=== PATIENT | female | born 1990 | race American Indian/Alaskan Native ===

== ENCOUNTER 2018-12-16 23:22 | Emergency (ER) | payer MEDICAID, OTHER ==
--- NOTE | 2018-12-17 00:18 | XRay Report ---
LEFT KNEE, 3 VIEWS INDICATION / CLINICAL INFORMATION: fall with pain and swellling. COMPARISON: None available. FINDINGS: No fracture or dislocation. No evidence of joint effusion. Signer Name: Nikolai Correia MD Signed: 12/17/2018 12:13 AM Workstation Name: [id number]
[2018-12-17] MEDS ORDERED: TYLENOL PO ONE (02:00)
[2018-12-17] MEDS ORDERED: IBUPROFEN PO ONE ×2 (02:00→02:01)
[2018-12-17] MEDS ORDERED: TYLENOL ONE (02:01)
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
[2018-12-17 04:51] VITALS: BP 118/78
== END 2018-12-17 04:46 | disposition home or self-care (01) ==
LOC: ED 23:22
DX: M25.561 Pain in right knee (principal); F17.200 Nicotine dependence, unspecified, uncomplicated; F12.10 Cannabis abuse, uncomplicated
CPT/HCPCS: 99284

== ENCOUNTER 2021-02-07 16:53 | Emergency (ER) | payer BC ==
[2021-02-07 17:17] VITALS: BP 119/75
--- NOTE | 2021-02-07 18:39 | Emergency Department Report ---
ED ENT HPI - General Chief complaint: Sore Throat Stated complaint: THROAT Time Seen by Provider: 02/07/21 18:12 Source: patient Mode of arrival: Ambulatory Limitations: No Limitations - History of Present Illness Initial comments: 30 year female presents to ED with complaints of sore throat and hoarse voice. Patient states her symptoms started about 2 weeks ago. She states that at the time she was having fever and thought her symptoms was related to COVID and got test which was negative. She reports pain with swallowing, and it feels like her throat is swollen and she reports intermittent hoarseness. She reports no trismus or dooling or difficulty breathing. She states has been trying otc treatment without much relief. She denies any ill contacts. MD complaint: sore throat, other (hoarse voice, ) -: week(s) (2) - Related Data Previous Rx's Medication Instructions Recorded Last Taken Type Ketorolac [Toradol] 10 mg PO Q6H PRN #14 tablet 12/17/18 Unknown Rx Amoxicillin [Trimox CAP] 500 mg PO Q12H #20 capsule 02/07/21 Unknown Rx predniSONE [Deltasone] 40 mg PO QDAY #10 tab 02/07/21 Unknown Rx Allergies Allergy/AdvReac Type Severity Reaction Status Date / Time No Known Allergies Allergy Verified 12/16/18 23:30 ED Dental HPI - General Chief complaint: Sore Throat Stated complaint: THROAT Time Seen by Provider: 02/07/21 18:12 Source: patient Mode of arrival: Ambulatory Limitations: No Limitations - Related Data Previous Rx's Medication Instructions Recorded Last Taken Type Ketorolac [Toradol] 10 mg PO Q6H PRN #14 tablet 12/17/18 Unknown Rx Amoxicillin [Trimox CAP] 500 mg PO Q12H #20 capsule 02/07/21 Unknown Rx predniSONE [Deltasone] 40 mg PO QDAY #10 tab 02/07/21 Unknown Rx Allergies Allergy/AdvReac Type Severity Reaction Status Date / Time No Known Allergies Allergy Verified 12/16/18 23:30 ED Review of Systems ROS: Stated complaint: THROAT Other details as noted in HPI Constitutional: denies: chills, fever Eyes: denies: eye pain, eye discharge, vision change ENT: throat pain, other (+hoarse voice ). denies: ear pain, dental pain, hearing loss, epistaxis, congestion Respiratory: denies: cough, shortness of breath, SOB with exertion, SOB at rest, wheezing Cardiovascular: denies: chest pain, palpitations Endocrine: no symptoms reported Gastrointestinal: denies: abdominal pain, nausea, diarrhea, constipation, hematemesis, melena, hematochezia Genitourinary: denies: urgency, dysuria, discharge Musculoskeletal: denies: back pain, joint swelling, arthralgia Skin: denies: change in color, change in hair/nails, pruritus Neurological: denies: headache, weakness, numbness, paresthesias, confusion, abnormal gait, vertigo Psychiatric: denies: anxiety, depression, auditory hallucinations, visual hallucinations, homicidal thoughts, suicidal thoughts Hematological/Lymphatic: denies: easy bleeding, easy bruising, swollen glands ED Past Medical Hx - Past Medical History Previous Medical History?: No - Surgical History Past Surgical History?: Yes Additional Surgical History: ovarian cyst, fallopian tube - Social History Smoking Status: Current Every Day Smoker Substance Use Type: Alcohol, Marijuana - Medications Home Medications: Home Medications Medication Instructions Recorded Confirmed Last Taken Type Ketorolac [Toradol] 10 mg PO Q6H PRN #14 tablet 12/17/18 Unknown Rx Amoxicillin [Trimox CAP] 500 mg PO Q12H #20 capsule 02/07/21 Unknown Rx predniSONE [Deltasone] 40 mg PO QDAY #10 tab 02/07/21 Unknown Rx ED Physical Exam - General Limitations: No Limitations General appearance: alert, in no apparent distress - Head Head exam: Present: atraumatic, normocephalic, normal inspection - Eye Eye exam: Present: normal appearance, PERRL, EOMI Pupils: Present: normal accommodation - ENT ENT exam: Present: mucous membranes moist - Expanded ENT Exam Expanded Mouth exam: Present: other (+hoarse voice ). Absent: drooling, trismus Throat exam: Positive: tonsillar erythema, other (mild tonsillar swelling ). Negative: tonsillar exudate, R peritonsillar mass, L peritonsillar mass - Neck Neck exam: Present: normal inspection, full ROM, thyromegaly. Absent: meningismus - Respiratory Respiratory exam: Present: normal lung sounds bilaterally - Cardiovascular Cardiovascular Exam: Present: regular rate, normal rhythm, normal heart sounds - GI/Abdominal GI/Abdominal exam: Present: soft. Absent: distended, tenderness, guarding, rebound - Neurological Exam Neurological exam: Present: alert, oriented X3, CN II-XII intact, normal gait - Psychiatric Psychiatric exam: Present: normal affect, normal mood ED Course Vital Signs 02/07/21 17:15 Temperature 99.3 F Pulse Rate 93 H Respiratory 20 Rate Blood Pressure 119/75 O2 Sat by Pulse 99 Oximetry ED Medical Decision Making - Lab Data Result diagrams: 02/07/21 18:40 02/07/21 18:40 - Radiology Data Radiology results: report reviewed Patient: MARICARMEN ESCALANTE MR#: [id number] : 1990 Acct:[id number] Age/Sex: 30 / F ADM Date: 02/07/21 Loc: ED Attending Dr: Ordering Physician: PEDRO NAVA Date of Service: 02/07/21 Procedure(s): XR neck soft tissue Accession Number(s): [id number] cc: PEDRO NAVA Fluoro Time In Minutes: NECK SOFT TISSUE 2 VIEW(S) INDICATION / CLINICAL INFORMATION: sore throat/swelling/hoarse voice COMPARISON: None available. FINDINGS: EPIGLOTTIS: No significant abnormality. RETROPHARYNGEAL SOFT TISSUES: No significant abnormality. AIRWAY: No significant abnormality. RADIOPAQUE FOREIGN BODY: None. SKELETAL SYSTEM: No significant abnormality. ADDITIONAL FINDINGS: None. IMPRESSION: 1. No significant abnormality. Signer Name: Colin Lambert MD Signed: 02/07/2021 6:51 PM Workstation Name: [id number] Transcribed By: [place] Dictated By: Colin Lambert MD Electronically Authenticated By: Colin Lambert MD Signed Date/Time: 02/07/211850 DD/ 50 TD/TT: - Medical Decision Making Soft tissue neck xray shows nothing acute. CBC and CMP unremarkable. TSh normal. Pt currently resting comfortably, she is not toxic or ill appearing. She has no trismus or drooling on exam. She is not in any respiratory distress, no stridor and her air appears to be intact. Her vital signs are intact. Her thyroids does appear enlarged. Discussed all labs and imaging results with patient. Will treat for possible infectious process like strep and but I do recommend that she follows up with her PCP for thyroid US and also ENT. Her history, exam, diagnostic testing and the patient current condition does not suggest an infectious process such as meningitis, retropharyngeal abscess, epiglottitis, peritonsillar abscess, Sean's angina, severe meningitis, sepsis or any significant pathology warranting further testing, continued ED treatment, admission, consultation or any other evaluation at this time. Discussed suspected dx and tx plan with patient. She expressed understanding of instructions and agreed with plan. Pt stable at time of d/c Critical care attestation.: If time is entered above; I have spent that time in minutes in the direct care of this critically ill patient, excluding procedure time. ED Disposition Clinical Impression: Pharyngitis, Laryngitis, Thyromegaly Disposition: HOME / SELF CARE / HOMELESS Is pt being admited?: No Does the pt Need Aspirin: No Condition: Stable Instructions: Laryngitis, Pharyngitis, Goiter Additional Instructions: I recommend that you take the amoxicillin and prednisone as prescribed. I do recommend that you follow up with your PCP for thyroid US as well as ENT for further evaluation of your symptoms. Return to ED if symptoms worsens or changes in anyway. Prescriptions: predniSONE [Deltasone] 40 mg PO QDAY #10 tab Amoxicillin [Trimox CAP] 500 mg PO Q12H #20 capsule Referrals: [facility] [Provider Group] - 3-5 Days (Primary care physician ) JUWAN GAVIN MD [Staff Physician] - 7-10 days (ENT) JOJO DURÁN MD [Staff Physician] - 3-5 Days (Primary care physician ) Forms: Work/School Release Form(ED) Time of Disposition: 20:05
--- NOTE | 2021-02-07 18:56 | XRay Report ---
NECK SOFT TISSUE 2 VIEW(S) INDICATION / CLINICAL INFORMATION: sore throat/swelling/hoarse voice COMPARISON: None available. FINDINGS: EPIGLOTTIS: No significant abnormality. RETROPHARYNGEAL SOFT TISSUES: No significant abnormality. AIRWAY: No significant abnormality. RADIOPAQUE FOREIGN BODY: None. SKELETAL SYSTEM: No significant abnormality. ADDITIONAL FINDINGS: None. IMPRESSION: 1. No significant abnormality. Signer Name: Colin Lambert MD Signed: 02/07/2021 6:51 PM Workstation Name: [id number]
[2021-02-07 19:29] LABS: Basophils % (Auto) 0.5 % (0.0-1.8); Eosinophils # (Auto) 0.1 K/mm3 (0.0-0.4); Eosinophils % (Auto) 0.9 % (0.0-4.3); Hemoglobin 13.9 gm/dl (10.1-14.3); Lymphocytes # (Auto) 1.8 K/mm3 (1.2-5.4); Mean Corpuscular HGB Conc 34 % (30-34); Mean Corpuscular Volume 90 fl (79-97); Monocytes # (Auto) 0.7 K/mm3 (0.0-0.8); Monocytes % (Auto) 7.8 % (0.0-7.3); Platelet Count 223 K/mm3 (140-440); Red Blood Count 4.54 M/mm3 (3.65-5.03); Red Cell Distribution Width 13.9 % (13.2-15.2)
[2021-02-07 19:52] LABS: Alanine Aminotransferase 22 units/L (7-56); Albumin 4.2 g/dL (3.9-5); BUN/Creatinine Ratio 11; Blood Urea Nitrogen 10 mg/dL (7-17); Calcium 9.1 mg/dL (8.4-10.2); Hemolysis Index 2
== END 2021-02-07 20:10 | disposition home or self-care (01) ==
LOC: ED 16:53
DX: J02.9 Acute pharyngitis, unspecified (principal); J04.0 Acute laryngitis; E01.0 Iodine-deficiency related diffuse (endemic) goiter; F17.200 Nicotine dependence, unspecified, uncomplicated
CPT/HCPCS: 36415; 70360; 80053; 84443; 85025; 99283

== ENCOUNTER 2021-08-22 08:37 | Emergency (ER) | payer BC ==
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
--- NOTE | 2021-08-22 12:43 | Cat Scan Report ---
CT BRAIN: 08/22/2021 INDICATION / CLINICAL INFORMATION: headache, head injury. COMPARISON: None available. FINDINGS: BRAIN/INTRACRANIAL STRUCTURES: Unenhanced CT images of the brain demonstrate no evidence of acute abn ormality. Ventricles and sulci are normal in size and shape. There is no evidence of hemorrhage or mass. There are no abnormal extra-axial fluid collections. EXTRACRANIAL STRUCTURES: Unremarkable. IMPRESSION: No acute abnormality. Negative unenhanced CT of the brain. All CT scans at this location are performed using dose reduction to ALARA by means of automated expos ure control. Signer Name: Rivera Brannon MD Signed: 08/22/2021 12:39 PM Workstation Name: [id number]
[2021-08-22 13:34] VITALS: BP 135/89
== END 2021-08-22 13:37 | disposition home or self-care (01) ==
LOC: ED 08:37
DX: S09.90XA Unspecified injury of head, initial encounter (principal); F17.200 Nicotine dependence, unspecified, uncomplicated; V29.9XXA Motorcycle rider (driver) (passenger) injured in unspecified traffic accident, initial encounter; Y93.89 Activity, other specified; Y92.89 Other specified places as the place of occurrence of the external cause; Y99.8 Other external cause status
CPT/HCPCS: 70450; 99283